=== PATIENT | female | born 1995 | race Caucasian/White ===

== ENCOUNTER 2022-03-07 10:28 | Emergency (ER) | payer BC, SELFPAY ==
[2022-03-07] VITALS (7 sets, daily range): BP systolic 102–134; BP diastolic 70–94; PULSE 97–120; RESP 14–26; TEMP 36.7; O2SAT 87–100
--- NOTE | ~2022-03-07 | XR_ITS ---
EXAMINATION: XR chest 1V portable 03/07/2022 11:23 INDICATION: Shortness of breath. History of asthma. PROCEDURE: AP portable chest COMPARISON: 02/11/2007 FINDINGS: The lungs are clear. The cardiomediastinal silhouette is within normal limits. There are no pleural effusions. There is no pneumothorax suspected. IMPRESSION: 1: NO ACUTE CARDIOPULMONARY DISEASE. Reviewed, dictated and finalized at location B.
--- NOTE | 2022-03-07 10:48 | ECG_ITS ---
Measurements Intervals [place] Rate: 111 P: 69 MO: 141 QRS: 78 QRSD: 80 T: 57 QT: 317 QTc: 431 Interpretive Statements SINUS TACHYCARDIA POSSIBLE RIGHT ATRIAL ENLARGEMENT [0.25mV P-WAVE] POSSIBLE LEFT ATRIAL ENLARGEMENT [-0.1mV P-WAVE IN V1/V2] INCOMPLETE RIGHT BUNDLE BRANCH BLOCK NONSPECIFIC ST AND T WAVE ABNORMALITY ABNORMAL RHYTHM ECG NO PREVIOUS ECG AVAILABLE FOR COMPARISON Electronically Signed On 03-07-2022 14:32:44 CDT by Adrienne Zaman M.D.
--- NOTE | 2022-03-07 10:53 | ED.SOB ---
HPI - SOB/Dyspnea General Chief Complaint: Shortness of Breath/Dyspnea Stated Complaint: sob Time Seen by Provider: 03/07/22 10:48 History of Present Illness HPI Narrative: Patient is a 26-year-old female with a history of asthma here for evaluation of shortness of breath cough and nasal congestion over the past day and a half. Patient states that she has felt profoundly dyspneic with any activity, has been unable to do her normal activities without having to stop. She has attempted her as needed albuterol without any relief of her symptoms. States that numerous coworkers have the flu. Denies fevers, chills, chest pain, nausea or vomiting or leg swelling. Noted to be satting at 87% on room air upon arrival. Patient is not vaccinated against COVID or flu. Related Data Home Medications Medication Instructions Recorded Confirmed albuterol sulfate 90 mcg/actuation inhalation 03/07/22 aerosol inhaler (Ventolin HFA) dextroamphetamine-amphetamine 30 03/07/22 mg tablet Allergies Allergy/AdvReac Type Severity Reaction Status Date / Time No Known Allergies Allergy Verified 03/07/22 11:22 Review of Systems Review of Systems: Gen: Denies fevers or chills Eyes: Denies eye pain or visual change ENT: Denies congestion Respiratory: Reports shortness of breath and cough. CV: Denies chest pain or palpitations GI: Denies abdominal pain nausea, emesis or diarrhea : denies burning, urgency, frequency or hematuria Musculoskeletal: Denies back pain or muscle pain Neuro: Denies numbness, tingling, weakness or focal weakness Skin: Denies rash Except as documented, all other systems reviewed and negative Exam Narrative: APPEARANCE: Uncomfortable appearing, speaking in one-word sentences Head: Normocephalic and atraumatic. EYES: PERRLA/EOMI, conjunctivae clear NOSE: No nasal drainage EARS: External ear normal in appearance THROAT: Oropharynx is clear. Mucous membranes are moist. NECK: Supple. No adenopathy, no masses. RESPIRATORY: Diffuse expiratory wheezes noted throughout lung webber. CARDIOVASCULAR: Regular rate and rhythm without murmurs, rubs, or gallops. ABDOMINAL: Normoactive bowel sounds. Soft, nontender, nondistended. No rebound tenderness or guarding. MUSCULOSKELETAL: Extremities are warm and well-perfused. Moves all extremities well. No edema. NEURO: Normal speech. No focal neurologic deficits. SKIN: Skin is warm and dry. No rashes. PSYCHIATRIC: Normal affect/mood. Course Vital Signs Vital signs: Vital Signs Temperature 98.0 F 03/07/22 10:31 Pulse Rate 120 H 03/07/22 10:31 Respiratory Rate 22 H 03/07/22 10:31 Blood Pressure 134/94 H 03/07/22 10:31 Pulse Oximetry 87 L 03/07/22 10:31 Oxygen Delivery Room Air 03/07/22 10:31 Temperature 98.0 F 03/07/22 10:31 Pulse Rate 110 H 03/07/22 13:15 Respiratory Rate 20 03/07/22 13:15 Blood Pressure 102/70 03/07/22 13:15 Pulse Oximetry 100 03/07/22 13:15 Oxygen Delivery Nasal Cannula 03/07/22 11:00 Oxygen Flow Rate 2 03/07/22 11:00 MDM - SOB/Dyspnea MDM Narrative Medical decision making narrative: 26-year-old female with a history of asthma here for evaluation of dyspnea on exertion and at rest over the past day, unrelieved by home treatments. She is uncomfortable appearing upon my examination, and has diffuse wheezes throughout lung webber. She was given a continuous albuterol treatment in addition to steroids and magnesium with improvement of her symptoms, no longer had an oxygen requirement and is satting at 95% on room air. Dimer is negative, doubt PE. Chest x-ray is clear. EKG is fast but nonischemic. Her flu test is positive which likely explains her exacerbation, but she is unfortunately outside of the window for antivirals. patient requesting to go home. Offered admission for patient's symptoms which she declined. We will send prednisone to the pharmacy, patient has plenty of refills on her inhaler. [place]
[2022-03-07] MEDS: ALBUTEROL SULFATE NEB 2.5 MG/3 ML INH 5 MG INHALATION (11:03)
[2022-03-07] MEDS: MAGNESIUM SULF 2 GM/WATER 50ML 2 GM/50 ML BAG IVPB (11:15)
[2022-03-07] MEDS: predniSONE 20 MG TABLET 60 MG PO (11:15)
[2022-03-07 11:20] LABS: Basophils Percent Auto 0.6 % (0.2-1.2); Eosinophils Absolute Auto 0.1 K/mm3 (0-0.3); Eosinophils Percent Auto 1.9 % (0-4.4); Hematocrit 46.2 % (37.0-47.0); Hemoglobin 16.2 g/dL (12.0-15.0); Immature Granulocyte Absolute 0.01 K/mm3 (0.00-0.031); Immature Granulocyte Percent A 0.2 % (0-0.5); Lymphocytes Absolute Auto 0.54 K/mm3 (0.9-3.2); Lymphocytes Percent Auto 10.1 % (18.3-44.2); Mean Corpuscular HGB Conc 35.1 g/dl (32-36); Mean Corpuscular Hemoglobin 33.1 pg (26-34); Mean Corpuscular Volume 94.3 fl (80-100); Monocytes Absolute Auto 0.4 K/mm3 (0.1-0.6); Monocytes Percent Auto 7.3 % (2.6-8.5); Neutrophils Absolute Auto 4.3 K/mm3 (1.3-6.7); Neutrophils Percent Auto 79.9 % (45.5-73.1); Platelet Count Result 212 k/mm3 (150-375); Red Cell Distribution Width 12.1 % (11.5-14.5); White Blood Count 5.3 K/mm3 (4.5-10.0)
[2022-03-07 11:34] LABS: Alanine Aminotransferase 19 U/L (6-35); Albumin Level 5.1 g/dL (3.5-5.1); Alkaline Phosphatase 89 U/L (38-126); Anion Gap 16 mmol/L (8-16); Aspartate Amino Transferase 22 U/L (14-36); Bilirubin,Total 0.7 mg/dL (0.2-1.3); Blood Urea Nitrogen 7 mg/dL (7-17); Calcium 9.6 mg/dL (8.4-10.2); Carbon Dioxide 24 mmol/L (22-30); Chloride 102 mmol/L (98-107); Estimated CRCL calculation 108 ml/min; Estimated Glomerular Filt Rate > 60; Glucose 98 mg/dL (65-110); Potassium 3.5 mmol/L (3.4-5.0); Sodium 142 mmol/L (137-145)
[2022-03-07 12:04] LABS: D Dimer 0.38 ug/mL (<0.48)
[2022-03-07 12:07] LABS: Influenza A QL RT-PCR Positive (Negative); Influenza B QL RT-PCR Negative (Negative); SARS-CoV-2 RNA PCR Negative
[2022-03-07] MEDS: ACETAMINOPHEN 500 MG TABLET 1000 MG PO (12:54)
== END 2022-03-08 04:12 | disposition home or self-care (01) ==
PROVIDERS: Physician Assistant; Emergency Provider Emergency Medicine; PCP Family Medicine
DX: J10.1 Influenza due to other identified influenza virus with other respiratory manifestations (principal); Z20.822 Contact with and (suspected) exposure to COVID-19
CPT/HCPCS: 36415; 71045; 80053; 83735; 85025; 85380; 87502; 93005; 94640; 96365; 99284; A9270; J3475; J7512; U0003; U0005